=== PATIENT | female | born 1995 | race Caucasian/White ===

== ENCOUNTER 2017-03-24 23:15 | Outpatient (CLI) | payer OTHER ==
[~2017-03-24] VITALS: Ht 147.3 cm; Wt 86.1 kg
[~2017-03-24 23:15] MED LIST: FERR240T9 PO; ONDA4TAB14 PO; PRENAT PO; [UNRECOGNIZED DRUG - CODE] PR
[2017-03-24 23:49] VITALS: Ht 147.3 cm; Wt 86.1 kg
[2017-03-24 23:50] VITALS: BP 112/55
[2017-03-24] MEDS ORDERED: ACET500C5 PO (23:53)
[2017-03-24] MEDS ORDERED: CALC-143 PO (23:53)
--- NOTE | 2017-03-25 00:36 | RADRPT ---
PROCEDURE: Limited OB ultrasound CLINICAL INDICATION: 21 years of age, female. Evaluate cervical length. labor TECHNIQUE: Sonographic evaluation to assess the cervical length was performed. Transvaginal imagi ng of the cervix was performed. COMPARISON: None available. FINDINGS: The cervix is closed, measuring 4.4 cm in length. Negative for internal funneling. IMPRESSION: Closed cervix measuring 4.4 cm. RPTAT: HCTS Physician Berenice Date Time Electronically viewed and signed by Matias Schreiber Physician on 03/25/2017 00:35 CS/
[2017-03-25 00:42] LABS: ADD UMIC YES; UR AMORPHOUS CRYSTAL FEW /HPF (NONE SEEN); UR ASCORBIC ACID NEGATIVE (NEGATIVE); UR BACTERIA FEW /HPF (NONE SEEN); UR BILIRUBIN (Dip) NEGATIVE (NEGATIVE); UR BLOOD (Dip) NEGATIVE (NEGATIVE); UR CLARITY CLOUDY (CLEAR); UR COLOR YELLOW (YELLOW); UR GLUCOSE (Dip) NEGATIVE (NEGATIVE); UR KETONES (Dip) 1+ mg/dL (NEGATIVE); UR LEUKOCYTE ESTERASE (Dip) NEGATIVE Leu/ul (NEGATIVE); UR NITRITE (Dip) NEGATIVE (NEGATIVE); UR RBC 2 /HPF (0-5); UR SPECIFIC GRAVITY (Dip) 1.017 (1.003-1.030); UR SQUAMOUS EPITHELIAL CELL FEW /HPF (FEW); UR TOTAL PROTEIN (Dip) NEGATIVE (NEGATIVE); UR UROBILINOGEN (Dip) NEGATIVE (NEGATIVE)
[2017-03-25 01:23] LABS: BASOPHILS % 0.3 % (0.0-2.0); EOSINOPHILS % 0.4 % (0.0-7.0); HEMATOCRIT 31.7 % (37.0-47.0); HEMOGLOBIN 10.4 g/dl (12.0-16.0); LYMPHOCYTES # 2.6 10^3/ul (0.8-2.9); LYMPHOCYTES % 24.9 % (15.0-51.0); MEAN CORPUSCULAR HEMOGLOBIN 29.3 pg (29.0-33.0); MEAN CORPUSCULAR HGB CONC 32.8 g/dl (32.0-37.0); MEAN CORPUSCULAR VOLUME 89.3 fl (82.0-101.0); MEAN PLATELET VOLUME 10.2 fl (7.4-10.4); MONOCYTE # 0.7 10^3/ul (0.3-0.9); MONOCYTES % 6.1 % (0.0-11.0); NEUTROPHIL # 7.2 10^3/ul (1.6-7.5); NEUTROPHILS % 67.9 % (39.0-77.0); PLATELET COUNT 312 10^3/UL (140-415); RED BLOOD COUNT 3.55 10^6/ul (4.20-5.40); RED CELL DISTRIBUTION WIDTH 14.3 % (11.5-14.5); WHITE BLOOD COUNT 10.6 10^3/ul (4.8-10.8)
--- NOTE | 2017-03-25 03:23 | TRIAGE ---
OB Triage Datetime Report Generated by CPN: 03/25/2017 03:23 Datetime: 03/25/2017 03:00 Stage of : OB Triage Datetime: 03/25/2017 02:25 Stage of : OB Triage Datetime: 03/25/2017 02:15 Labor Evaluation Frequency: 4-8 Monitor Mode: External Quality: Mild Pattern: Normal: <= 5 Contractions in 10 Minutes Resting Tone [place]: Relaxed Heart Rate FHR Baseline Rate: 130 Monitor Mode: External US FHR Baseline Changes: No Baseline Change Variability: Moderate 6-25 bpm Accelerations: 15X15 Decelerations: None Category: Category I Datetime: 03/25/2017 01:46 Stage of : OB Triage Monitor Mode: External Quality: Mild Pattern: Normal: <= 5 Contractions in 10 Minutes Resting Tone [place]: Relaxed Heart Rate FHR Baseline Rate: 135 Monitor Mode: External US Variability: Moderate 6-25 bpm Accelerations: 15X15 Decelerations: None Category: Category I Datetime: 03/25/2017 01:21 Vaginal Exam Membrane Status: Intact Datetime: 03/25/2017 00:40 Quality: Mild Pattern: Normal: <= 5 Contractions in 10 Minutes Resting Tone [place]: Relaxed Heart Rate FHR Baseline Rate: 130 Monitor Mode: External US FHR Baseline Changes: No Baseline Change Variability: Moderate 6-25 bpm Accelerations: 15X15 Decelerations: None Category: Category I Pain Location: Left Groin Pain Assessment Comments: Pt states she feels pain rt groin whenever she moves Datetime: 03/24/2017 23:39 Time of Arrival: 03/24/2017 23:14 EGA: 31.6 Arrived By: Wheelchair Arrived From: Home Chief Complaint: c/o rt side constant lower abd pain Movement: Present Contractions: Denies/Absent Rupture of Membranes: Denies Vaginal Discharge: Denies Recent Sexual Intercouse: Denies Abdominal Trauma: Not Applicable Time Provider Notified: 03/24/2017 23:59 Provider Notified: Dr Romero Datetime: 03/24/2017 23:32 Stage of : OB Triage Maternal Assessment Level of Consciousness: Fully Conscious Headache: Denies Blurred Vision: No Nausea/Vomiting: Denies RUQ Epigastric Pain: Denies Facial Edema: None Monitor Mode: External Resting Tone [place]: Relaxed Heart Rate FHR Baseline Rate: 130 Monitor Mode: External US Pain Assessment Pain Scale: 9 Pain Presence: Constant Pain Type: Stabbing Pain Location: Right Groin
--- NOTE | 2017-03-25 05:15 | PN ---
Triage Information Date/Time 03/24/17 Reason for visit: rt groin pain for 2days Weeks of Gestation 31w6d /Para Additional information pain is positional on Rt groin u.c better after hydration Objective Vital Signs Date Time Temp Pulse Resp B/P Pulse Ox O2 Delivery O2 Flow Rate FiO2 03/24/17 23:50 98.3 112/55 Room Air Heart Rate: 140's Contractions: >10 Minutes Apart Exam lachelle's sg positive on Rt hip negative on Lt hip Results/Medications Result Diagram: 03/25/17 0028 Results 24 hrs Laboratory Tests Test 03/24/17 23:30 03/25/17 00:28 Urine Color YELLOW Urine Clarity CLOUDY A Urine pH 7.0 Urine Specific [place] 1.017 Urine Ketones 1+ H Urine Nitrite NEGATIVE Urine Bilirubin NEGATIVE Urine Urobilinogen NEGATIVE Urine Leukocyte Esterase NEGATIVE Urine Microscopic RBC 2 Urine Microscopic WBC 6 H Urine Squamous Epithelial Cells FEW Urine Amorphous Crystals FEW A Urine Bacteria FEW A Urine Hemoglobin NEGATIVE Urine Glucose NEGATIVE Urine Total Protein NEGATIVE White Blood Count 10.6 Red Blood Count 3.55 #L Hemoglobin 10.4 #L Hematocrit 31.7 #L Mean Corpuscular Volume 89.3 Mean Corpuscular Hemoglobin 29.3 Mean Corpuscular Hemoglobin Concent 32.8 Red Cell Distribution Width 14.3 Platelet Count 312 Mean Platelet Volume 10.2 Neutrophils % 67.9 Lymphocytes % 24.9 Monocytes % 6.1 Eosinophils % 0.4 Basophils % 0.3 Nucleated Red Blood Cells % 0.0 Neutrophils # 7.2 Lymphocytes # 2.6 Monocytes # 0.7 Eosinophils # 0.0 Basophils # 0.0 Nucleated Red Blood Cells # 0.0 Medications po hydration Imaging Results CVL 4.4 Disposition: Discharge Assessment/Plan IUP 31w6d NIL Rt hip strain ?subluxation able to wt bear walk with limping Plan d/s home with waynech MOR SAWYER MD Mar 25, 2017 05:15
== END 2017-03-25 03:06 | disposition home or self-care (01) ==
LOC: L-D 23:15 → OBT 23:15
PROVIDERS: ATTEND Obstetrics & Gynecology
DX: O26.893 Other specified pregnancy related conditions, third trimester (principal); Z3A.31 31 weeks gestation of pregnancy
CPT/HCPCS: 76817; 81001; 85025; G0463

== ENCOUNTER 2017-05-04 11:43 | Outpatient (CLI) | payer OTHER ==
[~2017-05-04] VITALS: Ht 144.8 cm; Wt 88.6 kg
[~2017-05-04 11:43] MED LIST changes: +ACET500C5 PO; +CALC-143 PO; -ONDA4TAB14 PO; -[UNRECOGNIZED DRUG - CODE] PR
--- NOTE | 2017-05-04 13:00 | RADRPT ---
PROCEDURE: OB ultrasound for biophysical profile CLINICAL INDICATION: Poor tone. TECHNIQUE: Multiple sonographic images of the pelvis were obtained. Transabdominal views of the g ravid uterus are available for review. The images were reviewed on a PACS workstation. COMPARISON: None FINDINGS: breathing movement = 2/2 tone = 2/2 motion = 2/2 JOSELYN = 2/2 JOSELYN = 11.2 cm Single live intrauterine with cardiac activity of 147 bpm. position is cephal ic. The placenta is anterior. IMPRESSION: 1. Single live intrauterine gestation. 2. Biophysical profile = 8/8. 3. JOSELYN = 11.2 cm. RPTAT: HH .Yesenia Montalvo MD, MD Date Time Electronically viewed and signed by .Yesenia Montalvo MD, on 05/04/2017 13:00 .G/
[2017-05-04 13:02] VITALS: Ht 144.8 cm; Wt 88.6 kg
[2017-05-04 13:03] VITALS: BP 106/54; PULSE 83
--- NOTE | 2017-05-04 13:08 | RADRPT ---
PROCEDURE: US Lower extremity Venous. CLINICAL INDICATION: Bilateral lower extremity edema , pain TECHNIQUE: Multiple sonographic images of the bilateral lower extremity deep venous system was obt ained utilizing grayscale, color-flow, compressive sonography and doppler imaging with augmentation. The images were reviewed on a PACS workstation. COMPARISON: None. FINDINGS: There is normal compressibility and flow within the bilateral common femoral, femoral , posterior ti bial and popliteal veins. RPTAT: AA IMPRESSION: No sonographic evidence for deep venous thrombosis. .Orlando Bell MD, MD Date Time Electronically viewed and signed by .Orlando Bell MD, on 05/04/2017 13:08 .S/
--- NOTE | 2017-05-04 14:41 | PN ---
Triage Information Date/Time May 04, 2017 Reason for visit: Patient was referred for left-sided calf and thigh pain in her back and patient has had calf tenderness as well Weeks of Gestation 37 weeks /Para 2 para 1 Diabetes: none Hypertention: none Additional information Seen in the clinic with the calf and thigh tenderness and positive Homans sign Objective Vital Signs Date Time Temp Pulse Resp B/P Pulse Ox O2 Delivery O2 Flow Rate FiO2 05/04/17 13:03 98.4 83 106/54 Heart Rate: 140's Heart Rate Comments Reactive Contractions: None Exam Deferred Results/Medications Imaging Results No sonographic evidence for deep venous thrombosis. Single live intrauterine gestation. Biophysical profile = 02/08. JOSELYN = 11.2 cm. Disposition: Discharge Assessment/Plan Deep vein thrombosis was ruled out We will follow patient in the clinic ERICK MILLER MD May 04, 2017 14:41
== END 2017-05-04 14:40 | disposition home or self-care (01) ==
LOC: L-D 11:43 → OBT 11:43 → L-D 11:47 → OBT 14:40
PROVIDERS: ATTEND Obstetrics & Gynecology
DX: O26.893 Other specified pregnancy related conditions, third trimester (principal); Z3A.37 37 weeks gestation of pregnancy; M79.662 Pain in left lower leg; M79.652 Pain in left thigh
CPT/HCPCS: 76818; 93970; Z7500; G0463

== ENCOUNTER 2017-05-10 20:41 | Inpatient (IN) | payer OTHER ==
[~2017-05-10] VITALS: Ht 144.8 cm; Wt 88.8 kg
[2017-05-10] MEDS ORDERED: LACTATED RINGER'S 1,000 ML IV PRN (21:00)
[2017-05-10 21:19] VITALS: Ht 144.8 cm; Wt 88.8 kg
[2017-05-10] MEDS ORDERED: IBUPROFEN 600 MG TAB PO PRN (21:30)
[2017-05-10] MEDS ORDERED: OXYTOCIN 30 UNITS/LR 500 ML IV SCH ×2 (21:30)
[2017-05-10] MEDS ORDERED: MISOPROSTOL 200 MCG TAB PR PRN (21:30)
[2017-05-10] MEDS ORDERED: AMPICILLIN 2 GM/NS (PMX) 100 ML IV ONE (21:30)
[2017-05-10] MEDS ORDERED: OXYTOCIN 30 UNITS/LR 500 ML IV PRN (21:30)
[2017-05-10] MEDS ORDERED: METHYLERGONOVINE 0.2 MG INJ IM PRN (21:30)
[2017-05-10] MEDS ORDERED: CARBOPROST 250 MCG INJ IM PRN (21:30)
[2017-05-10] MEDS ORDERED: LIDOCAINE 1% (MPF) 30 ML INJ INJ PRN (21:30)
[2017-05-10] MEDS: LACTATED RINGER'S 1,000 ML IV SCH (21:50)
[2017-05-10] MEDS: BUTORPHANOL 2 MG INJ IV PRN (21:54)
[2017-05-10 22:15] LABS: BASOPHILS % 0.3 % (0.0-2.0); EOSINOPHILS % 0.3 % (0.0-7.0); HEMATOCRIT 35.7 % (37.0-47.0); HEMOGLOBIN 11.7 g/dl (12.0-16.0); LYMPHOCYTES # 2.6 10^3/ul (0.8-2.9); LYMPHOCYTES % 23.4 % (15.0-51.0); MEAN CORPUSCULAR HEMOGLOBIN 28.3 pg (29.0-33.0); MEAN CORPUSCULAR HGB CONC 32.8 g/dl (32.0-37.0); MEAN CORPUSCULAR VOLUME 86.2 fl (82.0-101.0); MEAN PLATELET VOLUME 10.8 fl (7.4-10.4); MONOCYTE # 0.5 10^3/ul (0.3-0.9); MONOCYTES % 4.7 % (0.0-11.0); NEUTROPHIL # 7.8 10^3/ul (1.6-7.5); PLATELET COUNT 316 10^3/UL (140-415); RED BLOOD COUNT 4.14 10^6/ul (4.20-5.40); RED CELL DISTRIBUTION WIDTH 16.3 % (11.5-14.5)
--- NOTE | 2017-05-10 22:25 | HP ---
Date/Time of Note Date/Time of Note DATE: 05/10/17 TIME: 22:18 OB - History Hx of Present Free Text/Dictation 21 y.o at 38w4d in active labor with intact membrane. c/o UC q 2min with bloody show Initial vaginal exam 5/90%/-2 had unevenful course GBS positive admitted for expectant management. Chief Complaint: UC's Estimated Due Date: May 20, 2017 : 2 Para: 1 Spontaneous : 0 Therapeutic : 0 Care: Good Care Ultrasounds: Normal mid trimester US Obstetrical Complications: None Medical Complications: None Past Family/Social History * Past Medical, Surgical, Family and Obstetric Histories reviewed from chart. Blood Type: O+ Rubella: immune RPR/VDRL: Negative GBS Status: Positive HBsAG: Negative OB Admission Exam Physical Exam HEENT: WNL Heart: Rhythm Normal Lungs: Clear, Equal Abdomen: WNL Extremities: Normal Reflexes: Normal Cervical Dilatation: 5cm Effacement: Other (90%) Station: -2 Membranes: Intact Amniotic Fluid: Unevaluable Heart Rate: 140's Accelerations: Accelerations Present Decelerations: No Decelerations Varibility: Moderate Contractions on Admission: < 5 Minutes Apart Intensity: Moderate Last 72 hours Lab Results CBC & BMP 05/10/17 21:20 OB Assessment/Plan Reason for admission: active labor Other Assessment: IUP 38w4d Plan: Expectant Management MOR SAWYER MD May 10, 2017 22:25
[2017-05-10] MEDS ORDERED: MINERAL OIL LIGHT 10 ML VIAL TOP ONE (22:30)
[2017-05-10 22:31] LABS: INR 0.95; PARTIAL THROMBOPLASTIN TIME 26.4 Sec (25.0-35.0); PROTIME 12.7 Sec (12.2-14.2)
[2017-05-11] MEDS: BUTORPHANOL 2 MG INJ IV PRN (00:48)
[2017-05-11] MEDS ORDERED: AMPICILLIN 1 GM/NS (PMX) 50 ML IV SCH (01:30)
--- NOTE | 2017-05-11 01:56 | LDN ---
Date/Time of Note Date/Time of Note DATE: 05/11/17 TIME: 01:53 Delivery Summary normal vaginal delivery Weeks of Gestation 38w6d Placenta Delivered: Spontaneously Meconium: none Episiotomy: No Perineal laceration: 1 Laceration repair: 000ch gut Anesthesia type: Local Estimated blood loss: 200 Sponge & Needle done & correct: Yes All needle counts correct: Yes Any foreign bodies felt in the: No Problems: Infant Delivery Information Sex Sex: male Apgars 1 Minute: 9 5 Minute: 9 10 Minute: 0 Suctioning Nose & mouth suctioned at kristin: Yes Delee suction performed: No Umbilical Cord Umbilical cord with: 3 Vessels Cord presentations: no nuchal cord Cord Blood was obtained: Yes Mother & Baby Disposition Disposition Mom & Baby to Maternity; Good: Yes Mom transferred to: Other Baby to NICU: No () MOR SAWYER MD May 11, 2017 01:56
[2017-05-11 03:25] VITALS: BP 127/58; PULSE 70; RESP 19
[2017-05-11 04:25] VITALS: BP 98/52; PULSE 83; RESP 17
[2017-05-11] MEDS ORDERED: MISOPROSTOL 200 MCG TAB PR PRN (04:30)
[2017-05-11] MEDS ORDERED: METHYLERGONOVINE 0.2 MG INJ IM PRN (04:30)
[2017-05-11] MEDS ORDERED: ZOLPIDEM 5 MG TAB PO PRN (04:30)
[2017-05-11] MEDS ORDERED: WITCH HAZEL/GLYCERIN PAD PR PRN (04:30)
[2017-05-11] MEDS ORDERED: OXYCODONE/ASPIRIN (4.88/325) TAB PO PRN (04:30)
[2017-05-11] MEDS ORDERED: OXYTOCIN 30 UNITS/LR 500 ML IV PRN (04:30)
[2017-05-11] MEDS ORDERED: CARBOPROST 250 MCG INJ IM PRN (04:30)
[2017-05-11] MEDS ORDERED: LANOLIN 7 GM TUBE TOP PRN (04:30)
[2017-05-11] MEDS ORDERED: BENZOCAINE 20% 56 ML SPRAY TOP PRN (04:30)
[2017-05-11] MEDS: LACTATED RINGER'S 1,000 ML IV SCH (05:27)
[2017-05-11] MEDS: OXYCODONE/ASPIRIN (4.88/325) TAB PO PRN ×2 (05:45→20:39)
[2017-05-11] MEDS: IBUPROFEN 600 MG TAB PO SCH ×3 (05:46→17:05)
[2017-05-11 08:53] VITALS: BP 103/52; PULSE 80; RESP 18
[2017-05-11] MEDS: SENNA/DOCUSATE NA (8.6MG/50MG) TAB PO SCH ×2 (09:19→20:39)
[2017-05-11 11:26] VITALS: BP 94/51; PULSE 79; RESP 17
[2017-05-11 16:18] VITALS: BP 98/55; PULSE 81; RESP 17
[2017-05-11 20:00] VITALS: BP 106/57; PULSE 86; RESP 20
[2017-05-12] MEDS: IBUPROFEN 600 MG TAB PO SCH ×5 (00:28→23:58)
[2017-05-12 00:40] VITALS: BP 115/55; PULSE 83; RESP 20
[2017-05-12 03:50] VITALS: BP 99/52; PULSE 81; RESP 20
[2017-05-12 08:10] VITALS: BP 111/57; PULSE 87; RESP 20
[2017-05-12] MEDS: SENNA/DOCUSATE NA (8.6MG/50MG) TAB PO SCH ×2 (08:57→21:42)
[2017-05-12] MEDS ORDERED: INFLUENZA VIRUS VACCINE 0.5 ML (DISPENSING) IM* ONE (09:00)
[2017-05-12 10:31] LABS: WHITE BLOOD COUNT 10.9 10^3/ul (4.8-10.8)
[2017-05-12 10:32] LABS: BASOPHIL # 0.1 10^3/ul (0.0-0.1); BASOPHILS % 0.5 % (0.0-2.0); EOSINOPHILS # 0.1 10^3/ul (0.0-0.5); HEMATOCRIT 33.4 % (37.0-47.0); HEMOGLOBIN 10.8 g/dl (12.0-16.0); LYMPHOCYTES # 3.2 10^3/ul (0.8-2.9); LYMPHOCYTES % 29.4 % (15.0-51.0); MEAN CORPUSCULAR HEMOGLOBIN 28.9 pg (29.0-33.0); MEAN CORPUSCULAR HGB CONC 32.3 g/dl (32.0-37.0); MEAN CORPUSCULAR VOLUME 89.3 fl (82.0-101.0); MEAN PLATELET VOLUME 10.4 fl (7.4-10.4); MONOCYTE # 0.5 10^3/ul (0.3-0.9); MONOCYTES % 4.9 % (0.0-11.0); NEUTROPHILS % 63.8 % (39.0-77.0); PLATELET COUNT 274 10^3/UL (140-415); RED BLOOD COUNT 3.74 10^6/ul (4.20-5.40); RED CELL DISTRIBUTION WIDTH 16.8 % (11.5-14.5)
[2017-05-12] MEDS: OXYCODONE/ASPIRIN (4.88/325) TAB PO PRN (15:41)
[2017-05-12 15:56] VITALS: BP 117/54; PULSE 86; RESP 18
--- NOTE | 2017-05-12 18:07 | DS ---
Date/Time of Note Date/Time of Note home today or next day DATE: 05/12/17 TIME: 18:05 Obstetrical Discharge Record Final Diagnosis Final Diagnosis: Term delivered Other Final Diagnosis S/P vaginal delivery Vaginal Delivery Obstetrical Delivery: Spontaneous, Laceration, Repaired Condition on Discharge Physical Assessment Last Vitals: see nurses notes Voiding: Yes Bowel Movement: Yes Breast: Soft, non-tender, Filling Fundus: Firm Abdomen and Incision: abdomen: soft BS + fundus at U Episiotomy: Perineum is clean and healing Calf Tenderness: No Patient Condition: Good ERICK MILLER MD May 12, 2017 18:07
[2017-05-12] MEDS ORDERED: IBUP-1542 PO (18:09)
--- NOTE | 2017-05-12 18:09 | PD.PPDC ---
TRANSMITTER CHIEF Discharge Instruction Provider Information Physician Information 21-year-old female had vaginal delivery Diagnosis Final Diagnosis: Status post vaginal delivery Condition Patient Condition: Good Diet Diet: Resume Regular Diet Activity/Restrictions Activity: Normal Activity May Shower Restrictions: Nothing in the Vagina Return to Work or School: Jun 28, 2017 Follow-up Follow-up with Physician: 4, Week/Weeks (In clinic for contraception) Return to clinic for OB Instructions: Breast Tenderness Depression Comment: Pelvic rest for 6 weeks ERICK MILLER MD May 12, 2017 18:09
[2017-05-12 20:20] VITALS: BP 113/50; PULSE 76; RESP 20
[2017-05-13 03:55] VITALS: BP 113/56; PULSE 85; RESP 18
[2017-05-13] MEDS: IBUPROFEN 600 MG TAB PO SCH ×2 (05:30→12:26)
[2017-05-13 07:50] VITALS: BP 117/55; PULSE 81; RESP 18
[2017-05-13] MEDS ORDERED: DIPHTH/TET/ACEL PERTUSS (ADULT) 0.5 ML VIAL IM* ONE (09:00)
[2017-05-13] MEDS: SENNA/DOCUSATE NA (8.6MG/50MG) TAB PO SCH (09:27)
== END 2017-05-13 14:55 | disposition home or self-care (01) | DRG 775 ==
LOC: OBT 20:41 → L-D 20:46 → OBT 21:15 → L-D 21:15 → PP1 05-11 03:25
PROVIDERS: ADMIT Obstetrics & Gynecology; ATTEND Obstetrics & Gynecology
PROC: 10E0XZZ Delivery of Products of Conception, External Approach (ICD-10-PCS; principal; 2017-05-11)
PROC: 3E0P3VZ Introduction of Hormone into Female Reproductive, Percutaneous Approach (ICD-10-PCS; 2017-05-11)
PROC: 0HQ9XZZ Repair Perineum Skin, External Approach (ICD-10-PCS; 2017-05-11)
DX: O70.0 First degree perineal laceration during delivery (principal); Z37.0 Single live birth; Z3A.38 38 weeks gestation of pregnancy
CPT/HCPCS: 85025; 85610; 85730; 86592; 86900; 86901; 87340; 90686; 90715; 99464; G0463; J0290; J0595; J2590; J7120